=== PATIENT | male | born 1995 | race African-American/Black ===

== ENCOUNTER 2018-11-23 21:43 | Inpatient (IN) ==
[2018-11-23] MEDS ORDERED: ONDANSETRON INJ 2 MG/ML 2 ML VIAL IV STA (22:10)
[2018-11-23] MEDS ORDERED: FAMOTIDINE 20MG/5ML IV PUSH IV STA (22:11)
[2018-11-23] MEDS ORDERED: SODIUM CHLORIDE 0.9% 500 ML IV SCH (22:15)
[2018-11-23 22:34] LABS: Basophils # (auto) 0.02 K/uL (0-0.2); Basophils % (auto) 0.2 %; Eosinophils # (auto) 0.17 K/uL (0-0.5); Eosinophils % (auto) 2.1 %; Hematocrit (blood only) 46.7 % (42-52); Hemoglobin 16.8 g/dL (14.0-18.0); Immature Granulocytes # (auto) 0.01 K/uL (0.00-0.02); Immature Granulocytes % (auto) 0.1 %; Lymphocytes # (auto) 2.82 K/uL (1.2-3.4); Lymphocytes % (auto) 34.1 %; Mean Corpuscular Hemoglobin 31.3 pg (25-34); Mean Platelet Volume 11.1 fL (7.4-10.4); Monocytes # (auto) 0.75 K/uL (0.11-0.59); Monocytes % (auto) 9.1 %; Neutrophils % (auto) 54.4 %; Platelet Count 182 K/uL (130-400); RDW Coefficient of Variation 12.8 % (11.5-14.5); RDW Standard Deviation 40.6 fL (36.4-46.3); Red Blood Count 5.37 M/uL (4.7-6.1); White Blood Count 8.27 K/uL (4.8-10.8)
--- NOTE | 2018-11-23 22:46 | XRay Report ---
XR chest 1V portable CLINICAL HISTORY: 23 years-old Male presenting with cp, poss esoph fb. TECHNIQUE: Portable upright AP view of the chest was obtained. COMPARISON: None. FINDINGS: Cardiomediastinal silhouette normal. Lungs and pleural spaces clear. Osseous structures normal. Exter nal metallic devices project over the upper abdomen. IMPRESSION: 1. No acute cardiopulmonary disease. No radiopaque foreign body in the thorax. Electronically signed by: Joe Yan M.D. 11/23/2018 10:44 PM
[2018-11-23 22:53] LABS: Albumin Level 4.5 gm/dl (3.4-5.0); BUN Creatinine Ratio 14.9 (10-20); Calcium 9.5 mg/dl (8.5-10.1); Est GFR (African American) 118.4; Est GFR (Non-African American) 102.2
[2018-11-23 22:55] LABS: Bilirubin,Total 0.4 mg/dl (0.2-1); Globulin 4.4 gm/dl (2.5-4.0); Total Protein 8.9 gm/dl (6.4-8.2)
--- NOTE | 2018-11-24 00:36 | Emergency Department Note ---
Entered by Elisa Schwartz acting as a scribe for Fco Bejarano MD History of Present Illness General Chief complaint: GI Assessment Stated complaint: ATE 10 PCS. OF GLASS, CUTS ON ARMS Time Seen by Provider: 11/23/18 22:00 Source: patient and other (nursing home) History of Present Illness Onset (ago): hour(s) (earlier today) Location: abdomen Pain Consistency: + constant Maximum Pain Intensity: 6 Quality: + other Associated symptoms: + cough and + other (cuts on right and left arms); no nausea/vomiting The patient is a 23 year old male who presents to the Emergency Room with complaints of constant abdominal pain following an episode in which he swallowed glass at the nursing home, per the nursing home's report.The nursing home states that he also cut himself on his arms from the glass. The patient states that has had a cough, but denies any nausea or vomiting. The patient states that he has a history of a heart murmur. The nursing home also states that the patient is part of the mental health facility, and is required to wear a taser belt at all times outside of the nursing home unless under anesthesia for surgery. Home Medications Home Medications Medication Instructions Recorded Confirmed Type clonidine HCl 0.2 mg PO BID 11/23/18 11/23/18 History imipramine HCl 50 mg PO BID 11/23/18 11/23/18 History Allergies Allergy/AdvReac Type Severity Reaction Status Date / Time No Known Allergies Allergy Unverified 11/23/18 23:11 Past Med/Surg History Medical History Heart murmur Laceration Abdominal pain Contact with glass as cause of injury with undetermined intent of harm Surgical History No pertinent past surgical history Family History Other No pertinent family history Social History Preferred Language: Yi Communication Ability: Unable Reference Library Assistant Required: No Current Living Situation: Other Current Living Situation Comment: [facility] Feels Safe at Home: Yes Smoking Status: Former smoker Review of Systems See HPI for pertinent positives & negatives. and A total of 10 systems reviewed and were otherwise negative Physical Exam Vital Signs Vital Signs - 24 hr 11/23/18 21:47 11/23/18 23:48 Temperature 37 C Temperature Source Oral Sepsis Recent Fever Within 48 Hours No Sepsis New/Unexplained Change in Mental Status No Sepsis Action Taken by Nursing No Action Required Pulse Rate 105 H Pulse Rate [Right] 95 H Pulse Rhythm [Right] Regular Pulse Strength [Right] Normal Respiratory Rate 14 18 Respiratory Effort / Characteristics Non-Labored Spontaneous Respiratory Depth Normal Normal Blood Pressure 130/91 Blood Pressure [Left Arm] 127/86 Blood Pressure Mean 104 Blood Pressure Mean [Left Arm] 99 Blood Pressure Position [Left Arm] Sitting Pulse Oximetry 93 98 Oxygen Delivery Method Room Air GENERAL: Patient is in no acute distress. HEENT: No acute trauma, normocephalic atraumatic, mucous membranes moist, no nasal congestion, no scleral icterus. NECK: No stridor, no adenopathy, no meningismus, trachea is midline. LUNGS: Clear to auscultation bilaterally, no wheeze, no rhonchi, breath sounds equal. HEART: 3/6 systolic murmur, mildly tachycardic, regular rhythm. ABDOMEN: Tenderness. Soft,bowel sounds positive, no hernias, no peritonitis. EXTREMITIES: Multiple superficial lacerations to upper extremities. The wounds are clean, no active bleeding. No cyanosis or edema, full range of motion of all the joints without pain or difficulty. NEUROLOGIC: Oriented x 3, no acute motor or sensory deficits, no focal weakness. SKIN: No rash, no jaundice, no diaphoresis. Psyc: Cooperative, admits to ingesting glass and self cutting in an attempt to harm himself. Course 220: Past medical records reviewed. The patient was evaluated in room B4. A complete history and physical exam was performed. 2350: I spoke with Dr. Jenkins GI who recommends no emergent endoscopy and says he just needs observation. 2353: Upon reevaluation, I discussed findings and results with the patient. He verbalized agreement of the treatment plan. 0002: I spoke with Dr. [facility] Hospitalist and she agrees to take the patient for further evaluation. Administered Medications Clonidine HCl (Catapres) 0.2 mg PO BID [facility]UC[facility] Stop: 12/24/18 03:59 Last Admin: 11/24/18 19:48 Dose: 0.2 mg Documented by: [id number] Admin: 11/24/18 09:48 Dose: Not Given Documented by: [id number] Admin: 11/24/18 04:59 Dose: 0.2 mg Documented by: [id number] Lactated Ringer's (Lr) 1,000 mls @ 75 mls/hr IV .[id number] [facility] Stop: 12/24/18 03:26 Last Admin: 11/24/18 19:47 Dose: 75 mls/hr Documented by: [id number] Infusion: 11/24/18 19:47 Dose: 125 mls/hr Documented by: [id number] Admin: 11/24/18 18:13 Dose: 125 mls/hr Documented by: [id number] Infusion: 11/24/18 18:13 Dose: 0 mls/hr Documented by: [id number] Infusion: 11/24/18 14:11 Dose: 125 mls/hr Documented by: [id number] Infusion: 11/24/18 11:58 Dose: 0 mls/hr Documented by: [id number] Admin: 11/24/18 04:58 Dose: 125 mls/hr Documented by: [id number] Imipramine HCl (Tofranil) 50 mg PO BID [facility] Stop: 12/24/18 21:00 Last Admin: 11/24/18 19:48 Dose: 50 mg Documented by: [id number] Admin: 11/24/18 09:48 Dose: Not Given Documented by: [id number] Admin: 11/24/18 04:59 Dose: 50 mg Documented by: [id number] Pantoprazole Sodium (Protonix) 40 mg PO DAILYBB [facility] Stop: 12/24/18 13:14 Last Admin: 11/24/18 14:24 Dose: 40 mg Documented by: [id number] Sucralfate (Carafate) 1 gm PO QID [facility] Stop: 12/24/18 08:59 Last Admin: 11/24/18 19:48 Dose: 1 gm Documented by: [id number] Admin: 11/24/18 18:13 Dose: Not Given Documented by: [id number] Admin: 11/24/18 14:24 Dose: 1 gm Documented by: [id number] Admin: 11/24/18 09:47 Dose: Not Given Documented by: [id number] Discontinued Medications Famotidine (Pepcid 20mg Iv Push) 20 mg IV ONE STA Stop: 11/23/18 22:12 Last Admin: 11/23/18 22:24 Dose: 20 mg Documented by: [id number] Fentanyl Citrate (Fentanyl Citrate) Confirm Administered Dose 100 mcg .ROUTE .STK-MED ONE Stop: 11/24/18 12:01 Last Admin: 11/24/18 13:55 Dose: Not Given Documented by: [id number] Sodium Chloride (Nss) 500 mls @ 999 mls/hr IV .Q31M [facility] Stop: 11/23/18 22:45 Last Infusion: 11/23/18 23:00 Dose: 0 mls/hr Documented by: [id number] Admin: 11/23/18 22:25 Dose: 999 mls/hr Documented by: [id number] Lidocaine HCl (Xylocaine 2%) Confirm Administered Dose 4 ml INFIL .STK-MED ONE Stop: 11/24/18 12:46 Last Admin: 11/24/18 13:56 Dose: Not Given Documented by: [id number] Midazolam HCl (Versed) Confirm Administered Dose 2 mg .ROUTE .STK-MED ONE Stop: 11/24/18 12:01 Last Admin: 11/24/18 13:56 Dose: Not Given Documented by: [id number] Ondansetron HCl (Zofran) 4 mg IV NOW [facility] Stop: 11/23/18 22:11 Last Admin: 11/23/18 22:25 Dose: 4 mg Documented by: [id number] Ondansetron HCl (Zofran) Confirm Administered Dose 4 mg .ROUTE .STK-MED ONE Stop: 11/24/18 12:46 Last Admin: 11/24/18 13:56 Dose: Not Given Documented by: [id number] Propofol (Diprivan) Confirm Administered Dose 200 mg IV .STK-MED ONE Stop: 11/24/18 12:46 Last Admin: 11/24/18 13:56 Dose: Not Given Documented by: [id number] Ranitidine HCl (Zantac) 150 mg PO BID [facility] Stop: 12/24/18 03:26 Last Admin: 11/24/18 09:48 Dose: Not Given Documented by: [id number] Admin: 11/24/18 04:59 Dose: 150 mg Documented by: [id number] Medical Decision Making Differential Diagnosis differential diagnosis: foreign body to the upper abdomen, suicidal ideation, esophageal rupture, gastric rupture, gastric or esophageal bleeding, bowel obstruction. Medical Records Attestation: I reviewed the patient's medical records. Home Medications Current Medication List: was personally reviewed by me Laboratory Data Attestation: I reviewed the patient's lab results. Result diagrams: 11/24/18 06:59 11/23/18 22:17 Lab Results 11/23/18 11/23/18 Range/Units 22:17 22:17 WBC 8.27 (4.8-10.8) K/uL RBC 5.37 (4.7-6.1) M/uL Hgb 16.8 (14.0-18.0) g/dL Hct 46.7 (42-52) % MCV 87.0 (80-100) fL MCH 31.3 (25-34) pg MCHC 36.0 (32-36) g/dL RDW Std Deviation 40.6 (36.4-46.3) fL RDW Coeff of Raven 12.8 (11.5-14.5) % Plt Count 182 (130-400) K/uL MPV 11.1 H (7.4-10.4) fL Immature Gran % (Auto) 0.1 % Neut % (Auto) 54.4 % Lymph % (Auto) 34.1 % Gosper % (Auto) 9.1 % Eos % (Auto) 2.1 % Baso % (Auto) 0.2 % Immature Gran # (Auto) 0.01 (0.00-0.02) K/uL Neut # (Auto) 4.50 (1.4-6.5) K/uL Lymph # (Auto) 2.82 (1.2-3.4) K/uL Gosper # (Auto) 0.75 H (0.11-0.59) K/uL Eos # (Auto) 0.17 (0-0.5) K/uL Baso # (Auto) 0.02 (0-0.2) K/uL Sodium 141 (136-145) mmol/L Potassium 4.0 (3.5-5.1) mmol/L Chloride 103 (98-107) mmol/L Carbon Dioxide 30 (21-32) mmol/L Anion Gap 8.0 (3-11) BUN 15 (7-18) mg/dl Creatinine 1.04 (0.6-1.4) mg/dl Est Cr Clr Drug Dosing 127.0 ml/min Est GFR ( Amer) 118.4 Est GFR (Non-Af Amer) 102.2 BUN/Creatinine Ratio 14.9 (10-20) Glucose 81 (70-99) mg/dl Calcium 9.5 (8.5-10.1) mg/dl Total Bilirubin 0.4 (0.2-1) mg/dl AST 16 (15-37) U/L ALT 15 (12-78) U/L Alkaline Phosphatase 66 (45-117) U/L Total Protein 8.9 H (6.4-8.2) gm/dl Albumin 4.5 (3.4-5.0) gm/dl Globulin 4.4 H (2.5-4.0) gm/dl Albumin/Globulin Ratio 1.0 (0.9-2) Lipase 54 L (73-393) U/L Imaging Data Radiologist's Impression: Read and interpreted by the radiologist XR chest 1V portable CLINICAL HISTORY: 23 years-old Male presenting with cp, poss esoph fb. TECHNIQUE: Portable upright AP view of the chest was obtained. COMPARISON: None. FINDINGS: Cardiomediastinal silhouette normal. Lungs and pleural spaces clear. Osseous structures normal. External metallic devices project over the upper abdomen. IMPRESSION: 1. No acute cardiopulmonary disease. No radiopaque foreign body in the thorax. Electronically signed by: Joe Yan M.D. 11/23/2018 10:[address] ABDOMEN & PELVIS Without Contrast: No definite foreign body. No evidence for bowel perforation. Radiologist: Lasha Kirby MD Study ready at 23:03 and initial results transmitted at 23:21 Blood Pressure Blood Pressure Findings: Elevated blood pressure Blood Pressure Disposition: further management by hospitalist [facility] Narrative There is no leukocytosis or concerning anemia. No significant electrolyte abnormality or kidney failure. No liver enzyme elevation. No evidence for pancreatitis by our testing. Chest film did not show mediastinal widening, pneumonia or free air. No radiopaque foreign debris seen. Abdominal and pelvis CT did not show any evidence for perforation or radiopaque foreign debris. On exam, the patient was not toxic, he was not febrile. He did not have perito nitis. He had multiple superficial cuts to his arms that would not require suturing. The cuts were cleansed and dressed. The patient received IV saline, he was maintained n.p.o. He received IV Pepcid and IV Zofran. The patient has done well during his ED stay. I did consult GI. After a fairly lengthy discussion, it was decided the patient would be best hospitalized for observation. He may require an endoscopy if things are worsening. No emergent endoscopy was felt warranted. I spoke to the patient and the guards, I talked with case management. The on- call hospitalist was consulted. In short, as to whether or not the patient truly ingested glass is unclear. He says he did although we find no evidence for this ingestion by CT. His arm lacerations will heal without suturing. Impression & Plan Suicidal ideation, Deliberate self-cutting, Foreign body ingestion Discharge Plan Visit Data *Final* Discharge Date/Time: 11/24/18 02:56 Chief Complaint: GI Assessment Stated Complaint: ATE 10 PCS. OF GLASS, CUTS ON ARMS ED Provider: Fco Bejarano Discharge Problem: Suicidal ideation, Deliberate self-cutting, Foreign body ingestion Patient Disposition: Admitted As Inpatient Discharge Instructions Interventions: ED Discharge Assessment Last Done: 11/24/18 02:56 Discharge Problem: Foreign body ingestion Qualifiers: Encounter type: initial encounter Qualified Code(s): T18.9XXA - Foreign body of alimentary tract, part unspecified, initial encounter The tooibe's documentation has been prepared under my direction and personally reviewed by me in its entirety. I confirm that the note above accurately reflects all work, treatment, procedures, and medical decision making performed by me.
--- NOTE | 2018-11-24 01:07 | History & Physical Report ---
Date of Service November 24, 2018 Assessment & Plan (1) Contact with glass as cause of injury with undetermined intent of harm: 23-year-old male with history of bipolar disorder, depression, ADHD, Asperger's presents status post witnessed ingestion of small glass pieces at 6 PM today with abdominal pain. Patient is a new prisoner at [facility]. He reports feeling bored and wanting to commit suicide as he has a very long imprisonment period so he broke the light bulb and use the glass to cut his arms and also ingested "sugar size "pieces. Glass ingestion No concern for acute bleed or perforation at this time CT abdomen/pelvis: No definite foreign body on bowel perforation Chest x-ray: Normal no radiopaque foreign body noted Hemoglobin normal Received famotidine, Zofran and normal saline in the ED Started on Zantac and Carafate Serial abdominal checks for worsening tenderness or distention Monitor CBC GI consulted -ED physician spoke to Dr. Giles who recommended observation overnight and will see patient in the morning Heart murmur Reports history of heart murmur for a long time Echo ordered to further investigate Superficial laceration Cleaned and dressing applied in the ED, no sutures needed Wound care daily History of Asperger's, ADHD, depression, bipolar Continue home medications of clonidine and imipramine FEN/GI: N.p.o. for possible procedure Code: Full DVT prophylaxis: SCDs chemical contraindicated Disposition: MedSurg (2) Abdominal pain: (3) Laceration: (4) Heart murmur: History of Present Illness Chief Complaint: Glass ingestion Primary Care Provider: [facility] 23-year-old male with history of bipolar disorder, depression, ADHD, Asperger's presents status post witnessed ingestion of small glass pieces at 6 PM today with abdominal pain. Patient is a new prisoner at [facility]. He reports feeling bored and wanting to commit suicide as he has a very long imprisonment period so he broke the light bulb and use the glass to cut his arms and also ingested "sugar size "pieces. Denies any hemoptysis, vomiting. No bowel movement yet. Abdominal pain is described as sharp and crampy in nature and intermittent. Also reports headache and lightheadedness, nausea and dysuria. Denies any fever, chills, chest pain, shortness of breath, vomiting, diarrhea, constipation, melena, hematochezia, hematuria. Previous similar cutting and suicidal attempts. Allergies Allergy/AdvReac Type Severity Reaction Status Date / Time No Known Allergies Allergy Unverified 11/23/18 23:11 Home Medications Home Medications Medication Instructions Recorded Confirmed Type clonidine HCl 0.2 mg PO BID 11/23/18 11/23/18 History imipramine HCl 50 mg PO BID 11/23/18 11/23/18 History Past Med/Surg History Medical History Heart murmur Laceration Abdominal pain Contact with glass as cause of injury with undetermined intent of harm Surgical History No pertinent past surgical history Family History Other No pertinent family history Social History Feels Safe at Home: Yes Smoking Status: Former smoker Review of Systems Review of Systems: As per HPI Physical Exam Physical Exam: General: In NAD HEENT: somewhat dry mucous membranes Neuro: A&O x 4, CN 2-12 intact, strength 5/5 bilateral upper and lower extremities, sensation intact bilateral upper and lower extremities Pulm: CTAB equal breath sounds bilaterally CV: RRR, 4/6 systolic ejection murmur lower to the L of sternum but heard throughout pericordium, cap refill 3 secs Abdomen:+BS, mild TTP of epigastric region and RLQ, non-distended, exam limited due to patient wearing shock felt that cannot be removed Skin: superficial cuts to arms - dressing C/D/I LE: no LE edema, no calf TTP Results & Data Vital Signs (Past 12 Hours) Vital Signs Temp Pulse Pulse Resp BP BP Pulse Ox 11/23/18 23:48 95 H 18 127/86 98 11/23/18 21:47 37 C 105 H 14 130/91 93 Laboratory Results Abnormal lab results 11/23/18 11/23/18 Range/Units 22:17 22:17 MPV 11.1 H (7.4-10.4) fL Bacon # (Auto) 0.75 H (0.11-0.59) K/uL Total Protein 8.9 H (6.4-8.2) gm/dl Globulin 4.4 H (2.5-4.0) gm/dl Lipase 54 L (73-393) U/L Diagnostic Findings XR chest 1V portable CLINICAL HISTORY: 23 years-old Male presenting with cp, poss esoph fb. TECHNIQUE: Portable upright AP view of the chest was obtained. COMPARISON: None. FINDINGS: Cardiomediastinal silhouette normal. Lungs and pleural spaces clear. Osseous structures normal. External metallic devices project over the upper abdomen. IMPRESSION: 1. No acute cardiopulmonary disease. No radiopaque foreign body in the thorax. Code Status & VTE Plan Code Status Full VTE Prophylaxis Plan VTE Prophylaxis will be ordered: Yes Supervising Physician Co-Signing Physician Notes Patient seen and examined, chart reviewed, case discussed with Dr. Polanco and I agree with her assessment and plan as documented above. Briefly patient is a 23-year-old -[place] male, inmate at [facility], with extensive psychiatric history to include bipolar disorder, depression, Asperger's, ADHD presenting after ingestion of glass. Patient cut his arm with glass then proceeded to swallow "sugar sized pieces". No complaints at present. No abdominal pain On physical exam he is afebrile, hemodynamically stable, no acute distress Abdomen is soft, nontender, nondistended. Exam limited secondary to taser belt in place Remainder of exam unremarkable Labs and images reviewed Assessment/plan: 23-year-old male presents after ingestion of glass. -Abdomen benign presently. No evidence of bleed or perforation -Continue to monitor -Carafate and Zantac -Wound care for superficial cuts -Remainder of plan as above PG Care Time/CCT Total # of Minutes Spent Total Time Spent with Patient: Total time spent is greater than 50% in coordination of care (as documented) at patient's floor/unit and/or counseling patient: Resident Activity Tracking Resident Involvement: Resident Care Provided Care Provided: Adult Hospital Medicine
[2018-11-24] MEDS ORDERED: ONDANSETRON INJ 2 MG/ML 2 ML VIAL IV PRN (03:27)
[2018-11-24] MEDS ORDERED: ACETAMINOPHEN 325 MG TAB PO PRN (03:27)
[2018-11-24] MEDS: LACTATED RINGER'S 1,000 ML IV SCH ×3 (04:58→19:47)
[2018-11-24] MEDS: cloNIDine HCl 0.1 MG TAB PO SCH ×3 (04:59→19:48)
[2018-11-24] MEDS: IMIPRAMINE HCL 50 MG TAB PO SCH ×3 (04:59→19:48)
[2018-11-24 07:16] LABS: Basophils # (auto) 0.02 K/uL (0-0.2); Basophils % (auto) 0.2 %; Eosinophils # (auto) 0.16 K/uL (0-0.5); Eosinophils % (auto) 1.7 %; Hematocrit (blood only) 42.6 % (42-52); Hemoglobin 15.2 g/dL (14.0-18.0); Immature Granulocytes # (auto) 0.01 K/uL (0.00-0.02); Immature Granulocytes % (auto) 0.1 %; Lymphocytes # (auto) 2.24 K/uL (1.2-3.4); Lymphocytes % (auto) 23.4 %; Mean Corpuscular Hemoglobin 31.3 pg (25-34); Mean Corpuscular Hgb Conc 35.7 g/dL (32-36); Mean Corpuscular Volume 87.7 fL (80-100); Mean Platelet Volume 10.9 fL (7.4-10.4); Monocytes % (auto) 11.5 %; Neutrophils # (auto) 6.06 K/uL (1.4-6.5); Neutrophils % (auto) 63.1 %; Platelet Count 167 K/uL (130-400); RDW Coefficient of Variation 12.7 % (11.5-14.5); RDW Standard Deviation 40.8 fL (36.4-46.3); Red Blood Count 4.86 M/uL (4.7-6.1); White Blood Count 9.59 K/uL (4.8-10.8)
--- NOTE | 2018-11-24 07:33 | CT Scan Report ---
ABDOMEN AND PELVIS CT WITHOUT CONTRAST CT DOSE: 352.45 mGy.cm HISTORY: Foreign body ingestion. ingested glass, poss fb or rupture TECHNIQUE: Multiaxial CT images of the abdomen and pelvis were performed without contrast. A dose lo wering technique was utilized adhering to the principles of ALARA. COMPARISON STUDY: Chest radiograph of same day FINDINGS: Streak artifact from the battery pack device is within the bilateral flank distributions. Lung bases are generally clear. No pneumatosis or pneumoperitoneum. Imaged inferior cardiac chambers are unremar kable. Limited evaluation of the solid abdominal organs without the use of IV contrast. Within the li mitations of the exam, the liver, spleen, gallbladder, pancreas and adrenal glands are unremarkable. Kidneys are within normal limits. Mild nonspecific wall thickening of the urinary bladder. No renal o r ureteral calculi or obstructive uropathy. Aorta and IVC are within normal limits. There is no bowel obstruction or bowel wall thickening identified. Moderate fecal retention. No opaque foreign body id entified. Appendix is not definitively visualized. There is no ascites or mesenteric inflammation. So ft tissues are within normal limits. Bones appear to be intact. No acute fracture identified. IMPRESSION: 1. Limited exam as above. 2. No bowel obstruction, bowel wall thickening, pneumatosis or pneumoperitoneum. 3. No opaque foreign body identified. 4. Moderate fecal retention. Electronically signed by: Alex Valdez M.D. 11/24/2018 7:31 AM
--- NOTE | 2018-11-24 09:10 | Gastrointestinal Consultation ---
Date of Consultation November 24, 2018 Assessment & Plan (1) Contact with glass as cause of injury with undetermined intent of harm: 23 year old male admitted for observation from group home after ingestion of glass pieces of lightbulb - he does not ongoing upper abdominal pain, but no nausea/vomiting. Has not moved his bowels since admission. - NPO - EGD today, timing to be determined - Consider general surgery consultation Thank you for allowing us to participate in the care of this patient. Please call with any acute changes, questions or concerns. Please see addendum below with additional recommendation from my supervising physician. Present on Admission?: Yes Supervising Physician Co-Signing Physician Notes I saw and evaluated the patient. We are consulted for question of swallowed glass. Patient reports that he broke up a light bulb yesterday and swallowed several small shards of glass. He is nonspecific with the amount in size of pieces but believes that the pieces were small. Physical exam No obvious distress Abdomen soft nontender Impression: Patient with a question of swallowed glass yesterday at present. We were certainly happy to provide endoscopic evaluation to look for shards within the upper digestive tract. If the exam is negative I would then suggest a surgical consultation to determine what course of therapy should be considered, likely observation perhaps at the [facility] with daily KUBs. We have discussed the risks and benefits of upper endoscopy to include bleeding, infection, perforation and need for follow-up exams. History of Present Illness Reason for Consultation: foriegn body ingestion Requesting Physician: Amrit Attending Physician: Vance Marcus History of Present Illness 23 year old male w/ history of bipolar disorder, depression, ADHD, Asperger's inmate at [facility] who presented through the ED after ingestion of glass pieces of light bulb - GI asked to evaluate. Pt was seen and evaluated, cahrt reviewed. Guards at bedside. Inital chart review indicated swallowed pieces were witnessed but guards at bedside unsure if this was witnessed or not. Pt notes he broke lightbuld, swallows piece of glass although he would not articulate size or amount to me. He also used glass pieces to cut his arms. Since ingestion has had upper abdominal pain. No nausea, vomiting. Denies any coffee ground emesis, hematemesis. Has not moved bowels. Denies any black/bloody stools. Denies any prior abd surgeries Has never had EGD/Colon before Chest XR: No acute cardiopulmonary disease. No radiopaque foreign body in the thorax. CT: Limited exam as above. No bowel obstruction, bowel wall thickening, pneumatosis or pneumoperitoneum. No opaque foreign body identified. Moderate fecal retention. Allergies Allergy/AdvReac Type Severity Reaction Status Date / Time No Known Allergies Allergy Unverified 11/23/18 23:11 Home Medications Home Medications Medication Instructions Recorded Confirmed Type clonidine HCl 0.2 mg PO BID 11/23/18 11/23/18 History imipramine HCl 50 mg PO BID 11/23/18 11/23/18 History Patient History Medical History Heart murmur Laceration Abdominal pain Contact with glass as cause of injury with undetermined intent of harm Surgical History No pertinent past surgical history Family History Other No pertinent family history Social History Preferred Language: Czech Communication Ability: Unable Guest Services Manager Required: No Current Living Situation: Other Current Living Situation Comment: [facility] Feels Safe at Home: Yes Smoking Status: Former smoker Review of Systems Constitutional: no fever, no chills and no fatigue Respiratory: no cough and no dyspnea Cardiovascular: no chest pain and no dyspnea on exertion Gastrointestinal: + abdominal pain; no coffee ground emesis, no hematemesis, no blood in stools and no melena Physical Exam Constitutional: WD/WN, vitals as above Neck: trachea midline Respiratory: normal respiratory effort, lungs clear to auscultation Cardiovascular: Rate/Rhythm: regular rate and regular rhythm Heart Sounds: + murmur Gastrointestinal (Abdomen): Inspection/Auscultation: abdomen normal to inspection and normal bowel sounds Percussion/Palpation: + abdomen tender (generalized) and abdomen soft; no guarding and abdomen not rigid Skin: no rashes, warm and dry Results & Data Vital Signs (Past 12 Hours) Vital Signs Temp Pulse Pulse Resp BP BP Pulse Ox 11/24/18 07:14 36.5 C 99 H 16 136/81 96 11/24/18 02:56 88 18 120/83 99 11/24/18 02:16 86 18 120/83 100 11/24/18 01:00 93 H 18 134/85 99 11/23/18 23:48 95 H 18 127/86 98 11/23/18 21:47 37 C 105 H 14 130/91 93 Laboratory Results 11/24/18 11/24/18 11/23/18 Range/Units 06:59 05:30 22:17 WBC 9.59 (4.8-10.8) K/uL RBC 4.86 (4.7-6.1) M/uL Hgb 15.2 (14.0-18.0) g/dL Hct 42.6 (42-52) % MCV 87.7 (80-100) fL MCH 31.3 (25-34) pg MCHC 35.7 (32-36) g/dL RDW Std Deviation 40.8 (36.4-46.3) fL RDW Coeff of Raven 12.7 (11.5-14.5) % Plt Count 167 (130-400) K/uL MPV 10.9 H (7.4-10.4) fL Immature Gran % (Auto) 0.1 % Neut % (Auto) 63.1 % Lymph % (Auto) 23.4 % Cecil % (Auto) 11.5 % Eos % (Auto) 1.7 % Baso % (Auto) 0.2 % Immature Gran # (Auto) 0.01 (0.00-0.02) K/uL Neut # (Auto) 6.06 (1.4-6.5) K/uL Lymph # (Auto) 2.24 (1.2-3.4) K/uL Cecil # (Auto) 1.10 H (0.11-0.59) K/uL Eos # (Auto) 0.16 (0-0.5) K/uL Baso # (Auto) 0.02 (0-0.2) K/uL Sodium 141 (136-145) mmol/L Potassium 4.0 (3.5-5.1) mmol/L Chloride 103 (98-107) mmol/L Carbon Dioxide 30 (21-32) mmol/L Anion Gap 8.0 (3-11) BUN 15 (7-18) mg/dl Creatinine 1.04 (0.6-1.4) mg/dl Est Cr Clr Drug Dosing 127.0 ml/min Est GFR ( Amer) 118.4 Est GFR (Non-Af Amer) 102.2 BUN/Creatinine Ratio 14.9 (10-20) Glucose 81 (70-99) mg/dl Calcium 9.5 (8.5-10.1) mg/dl Total Bilirubin 0.4 (0.2-1) mg/dl AST 16 (15-37) U/L ALT 15 (12-78) U/L Alkaline Phosphatase 66 (45-117) U/L Total Protein 8.9 H (6.4-8.2) gm/dl Albumin 4.5 (3.4-5.0) gm/dl Globulin 4.4 H (2.5-4.0) gm/dl Albumin/Globulin Ratio 1.0 (0.9-2) Lipase 54 L (73-393) U/L Nasal Screen MRSA (PCR) Positive A (Negative) 11/23/18 Range/Units 22:17 WBC 8.27 (4.8-10.8) K/uL RBC 5.37 (4.7-6.1) M/uL Hgb 16.8 (14.0-18.0) g/dL Hct 46.7 (42-52) % MCV 87.0 (80-100) fL MCH 31.3 (25-34) pg MCHC 36.0 (32-36) g/dL RDW Std Deviation 40.6 (36.4-46.3) fL RDW Coeff of Raven 12.8 (11.5-14.5) % Plt Count 182 (130-400) K/uL MPV 11.1 H (7.4-10.4) fL Immature Gran % (Auto) 0.1 % Neut % (Auto) 54.4 % Lymph % (Auto) 34.1 % Cecil % (Auto) 9.1 % Eos % (Auto) 2.1 % Baso % (Auto) 0.2 % Immature Gran # (Auto) 0.01 (0.00-0.02) K/uL Neut # (Auto) 4.50 (1.4-6.5) K/uL Lymph # (Auto) 2.82 (1.2-3.4) K/uL Cecil # (Auto) 0.75 H (0.11-0.59) K/uL Eos # (Auto) 0.17 (0-0.5) K/uL Baso # (Auto) 0.02 (0-0.2) K/uL Sodium (136-145) mmol/L Potassium (3.5-5.1) mmol/L Chloride (98-107) mmol/L Carbon Dioxide (21-32) mmol/L Anion Gap (3-11) BUN (7-18) mg/dl Creatinine (0.6-1.4) mg/dl Est Cr Clr Drug Dosing ml/min Est GFR ( Amer) Est GFR (Non-Af Amer) BUN/Creatinine Ratio (10-20) Glucose (70-99) mg/dl Calcium (8.5-10.1) mg/dl Total Bilirubin (0.2-1) mg/dl AST (15-37) U/L ALT (12-78) U/L Alkaline Phosphatase (45-117) U/L Total Protein (6.4-8.2) gm/dl Albumin (3.4-5.0) gm/dl Globulin (2.5-4.0) gm/dl Albumin/Globulin Ratio (0.9-2) Lipase (73-393) U/L Nasal Screen MRSA (PCR) (Negative)
[2018-11-24] MEDS: SUCRALFATE 1 GM/10 ML UDC PO SCH ×4 (09:47→19:48)
[2018-11-24] MEDS ORDERED: fentaNYL citrate 100 MCG/2 ML VIAL ONE (12:00)
[2018-11-24] MEDS ORDERED: MIDAZOLAM HCL 1 MG/ML 2ML VIAL ONE (12:00)
--- NOTE | 2018-11-24 12:03 | Anesthesiology Consultation ---
Date of Service November 24, 2018 Assessment & Plan (1) Encounter for pre-operative examination: Chart Review Chart Review: Acceptable Risk for Surgery and Patient NOT seen in Pre Admission Testing Consults Requested none History Surgery Operation Date: 11/24/18 08:30 Proposed Procedures p Esophagogastroduodenoscopy Dr Tristen Ramon Height/Weight Height: 6 ft 1 in Weight: 79.9 kg Allergies Allergy/AdvReac Type Severity Reaction Status Date / Time No Known Allergies Allergy Unverified 11/23/18 23:11 Medications Home Medications Medication Instructions Recorded Confirmed Last Taken clonidine HCl 0.2 mg PO BID 11/23/18 11/23/18 11/23/18 imipramine HCl 50 mg PO BID 11/23/18 11/23/18 11/23/18 Active Medications Generic Name Dose Route Start Last Admin Trade Name Freq PRN Reason Stop Dose Admin Clonidine HCl 0.2 mg 11/24/18 04:00 11/24/18 09:48 Catapres PO 12/24/18 03:59 Not Given BID LUCY Lactated Ringer's 1,000 mls @ 125 mls/hr 11/24/18 03:27 11/24/18 11:58 Lr IV 12/24/18 03:26 0 mls/hr .Q8H LUCY Infusion Imipramine HCl 50 mg 11/24/18 03:27 11/24/18 09:48 Tofranil PO 12/24/18 21:00 Not Given BID LUCY Ranitidine HCl 150 mg 11/24/18 03:27 11/24/18 09:48 Zantac PO 12/24/18 03:26 Not Given BID LUCY Sucralfate 1 gm 11/24/18 09:00 11/24/18 09:47 Carafate PO 12/24/18 08:59 Not Given QID LUCY NPO Date Last Intake of Fluids: 11/24/18 Time Last Intake of Fluids: 08:00 Last Intake of Fluids Comment: sip with meds Date Last Intake of Solids: 11/23/18 Time Last Intake of Solids: 16:00 Past Medical History Medical History Heart murmur Laceration Abdominal pain Contact with glass as cause of injury with undetermined intent of harm Past Family History Family History Other No pertinent family history Past Surgical History Surgical History No pertinent past surgical history Social History Smoking Status: Former smoker Physical Exam Vital Signs Last Vital Signs Temp 36.6 C 11/24/18 11:56 Pulse 74 11/24/18 11:56 Resp 16 11/24/18 11:56 BP 131/85 11/24/18 11:56 Pulse Ox 100 11/24/18 11:56 Testing Laboratory Results 11/24/18 06:59 11/23/18 22:17
[2018-11-24] MEDS ORDERED: PROPOFOL IV EMULSION 10 MG/ML 20 ML VIAL IV ONE (12:45)
[2018-11-24] MEDS ORDERED: ONDANSETRON INJ 2 MG/ML 2 ML VIAL ONE (12:45)
[2018-11-24] MEDS ORDERED: LIDOCAINE HCL 2% 2 ML VIAL/AMP(20MG/ML) INFIL ONE (12:45)
--- NOTE | 2018-11-24 12:51 | GI REPORT ---
Patient Name: Jr Narayanan Procedure Date: 11/24/2018 12:16 PM Date of : 1995 Admit Type: Inpatient Age: 23 Gender: Male Attending MD: Tal Ramon DO Procedure: Upper GI endoscopy Providers: Tal Ramon DO Referring MD: Charly WALDEN Indications: Foreign body in the GI tract (possible swallowed glass) Medicines: Monitored Anesthesia Care Complications: No immediate complications. Estimated blood loss: Minimal. Estimated Blood Loss: Estimated blood loss was minimal. Procedure: Pre-Anesthesia Assessment: - Prior to the procedure, a History and Physical was performed, and patient medications, allergies and sensitivities were reviewed. The patient's tolerance of previous anesthesia was reviewed. - The risks and benefits of the procedure and the sedation options and risks were discussed with the patient. All questions were answered and informed consent was obtained. - Patient identification and proposed procedure were verified prior to the procedure by the physician, the nurse and the septic tank service technician. The procedure was verified in the procedure room. - Pre-procedure physical examination revealed no contraindications to sedation. - ASA Grade Assessment: II - A patient with mild systemic disease. - After reviewing the risks and benefits, the patient was deemed in satisfactory condition to undergo the procedure. - The anesthesia plan was to use monitored anesthesia care (MAC). - Immediately prior to administration of medications, the patient was re-assessed for adequacy to receive sedatives. - The heart rate, respiratory rate, oxygen saturations, blood pressure, adequacy of pulmonary ventilation, and response to care were monitored throughout the procedure. - The physical status of the patient was re-assessed after the procedure. After obtaining informed consent, the endoscope was passed under direct vision. Throughout the procedure, the patient's blood pressure, pulse, and oxygen saturations were monitored continuously. The scope was introduced through the mouth, and advanced to the third part of duodenum. The upper GI endoscopy was accomplished without difficulty. The patient tolerated the procedure well. Findings: The upper third of the esophagus and middle third of the esophagus were normal. LA Grade A (one or more mucosal breaks less than 5 mm, not extending between tops of 2 mucosal folds) esophagitis with no bleeding was found at the gastroesophageal junction. The entire examined stomach was normal. The examined duodenum was normal. Impression: - LA Grade A reflux esophagitis. - Normal stomach. - Normal examined duodenum. - No specimens collected. Recommendation: - [facility]. - Use Prilosec (omeprazole) 20 mg PO daily. - No foreign body seen - Consider a General surgery consultation - GI to sign off. Tal Ramon D.O. Tal Ramon, 11/24/2018 12:50:42 PM This report has been signed electronically. Note Initiated On: 11/24/2018 12:16 PM Number of Addenda: 0 I attest to the content of the Intraoperative Record and orders documented therein, exceptions below {[id number]}
--- NOTE | 2018-11-24 12:59 | Anesthesiology Progress Note ---
Date of Service November 24, 2018 Anesthesia Post Procedure Vital Signs Vital Signs: Temp Pulse Pulse Resp BP BP Pulse Ox 11/24/18 12:47 65 16 113/60 100 11/24/18 11:56 36.6 C 74 16 131/85 100 11/24/18 07:14 36.5 C 99 H 16 136/81 96 11/24/18 02:56 88 18 120/83 99 11/24/18 02:16 86 18 120/83 100 11/24/18 01:00 93 H 18 134/85 99 11/23/18 23:48 95 H 18 127/86 98 11/23/18 21:47 37 C 105 H 14 130/91 93 Pain Intensity Bilateral Abdomen: Pain Intensity: 0 Transfer of Care Handoff Completed per policy Notes Mental Status: alert / awake / arousable Patient Amnestic to Procedure: Yes Nausea / Vomiting: adequately controlled Pain: adequately controlled Airway Patency, RR, SpO2: stable & adequate BP & HR: stable & adequate Hydration State: stable & adequate Anesthetic Complications: no major complications apparent and Pt Satisfied with anesthetic care
[2018-11-24] MEDS: PANTOprazole 40 MG TAB PO SCH (14:24)
--- NOTE | 2018-11-24 20:20 | Hospitalist Progress Note ---
Date of Service November 24, 2018 Assessment & Plan (1) Foreign body ingestion: patient recently transferred to [facility] from another shelter. upon arrival felt depressed. attempted self-harm/suicide by way of ingesting pieces of glass from a shattered light bulb. he has attempted suicide in the past several times. s/p EGD today without signs of injury or retained foreign body. spoke with GI who advised consultation with general surgery. spoke with on-call general surgery - they recommended at least another 24 hours of observation to observe for any signs/symptoms of bowel perforation. clear liquid diet also recommended. (2) Contact with glass as cause of injury with undetermined intent of harm: s/p suicide attempt see discussion above in "foreign body ingestion" (3) Suicidal ideation: patient denies being suicidal at this time. consider formal psych consult. he will be followed by psychiatry at the shelter. he is only on clonidine and imipramine -- uncertain, given his bipolar, why he is not on other mood stabilizing agents (antipsychotic, depakote, etc). (4) Bipolar disorder: as above (5) VSD (ventricular septal defect): exam and echo c/w such fortunately RV size/function is normal follow for now (6) Esophagitis: PPI lower IV fluid rate observe until tomorrow afternoon Subjective saw patient post-EGD he was upset that we were restricting diet to clears - asked for cookies, regular food, etc reports known h/o "7 holes in my heart" reports multiple suicide attempts in the past denies feeling suicidal at this time, however denies abd pain, nausea, emesis Review of Systems Respiratory: no dyspnea Cardiovascular: no chest pain Gastrointestinal: no abdominal pain and no vomiting Physical Exam Constitutional: well developed, well nourished and + well hydrated; no acute distress and no altered mental status ENMT: external ear and nose normal, oropharynx normal Respiratory: normal respiratory effort, lungs clear to auscultation Cardiovascular: Rate/Rhythm: regular rate and regular rhythm Heart Sounds: normal S1, normal S2 and + murmur (2-3/6 LLSB - early to mid systolic, harsh) Vessels: posterior tibial pulses present and dorsalis pedis pulses present; no JVD Extremities: no edema Gastrointestinal (Abdomen): normal bowel sounds, soft, nontender, no hepatosplenomegaly Psychiatric: Orientation: alert and oriented x 3 Results & Data Vital Signs (Past 12 Hours) Vital Signs Temp Pulse Resp BP BP Pulse Ox 11/24/18 14:59 36.3 C L 76 16 118/78 98 11/24/18 13:53 36.4 C L 68 18 120/82 100 11/24/18 13:17 70 16 111/74 100 11/24/18 13:02 70 16 121/70 97 11/24/18 12:47 65 16 113/60 100 11/24/18 11:56 36.6 C 74 16 131/85 100 Laboratory Results Laboratory Results - last 24 hr 11/23/18 11/23/18 11/24/18 22:17 22:17 05:30 WBC 8.27 RBC 5.37 Hgb 16.8 Hct 46.7 MCV 87.0 MCH 31.3 MCHC 36.0 RDW Std Deviation 40.6 RDW Coeff of Raven 12.8 Plt Count 182 MPV 11.1 H Immature Gran % (Auto) 0.1 Neut % (Auto) 54.4 Lymph % (Auto) 34.1 Roane % (Auto) 9.1 Eos % (Auto) 2.1 Baso % (Auto) 0.2 Immature Gran # (Auto) 0.01 Neut # (Auto) 4.50 Lymph # (Auto) 2.82 Roane # (Auto) 0.75 H Eos # (Auto) 0.17 Baso # (Auto) 0.02 Sodium 141 Potassium 4.0 Chloride 103 Carbon Dioxide 30 Anion Gap 8.0 BUN 15 Creatinine 1.04 Est Cr Clr Drug Dosing 127.0 Est GFR ( Amer) 118.4 Est GFR (Non-Af Amer) 102.2 BUN/Creatinine Ratio 14.9 Glucose 81 Calcium 9.5 Total Bilirubin 0.4 AST 16 ALT 15 Alkaline Phosphatase 66 Total Protein 8.9 H Albumin 4.5 Globulin 4.4 H Albumin/Globulin Ratio 1.0 Lipase 54 L Nasal Screen MRSA (PCR) Positive A 11/24/18 06:59 WBC 9.59 RBC 4.86 Hgb 15.2 Hct 42.6 MCV 87.7 MCH 31.3 MCHC 35.7 RDW Std Deviation 40.8 RDW Coeff of Raven 12.7 Plt Count 167 MPV 10.9 H Immature Gran % (Auto) 0.1 Neut % (Auto) 63.1 Lymph % (Auto) 23.4 Roane % (Auto) 11.5 Eos % (Auto) 1.7 Baso % (Auto) 0.2 Immature Gran # (Auto) 0.01 Neut # (Auto) 6.06 Lymph # (Auto) 2.24 Roane # (Auto) 1.10 H Eos # (Auto) 0.16 Baso # (Auto) 0.02 Sodium Potassium Chloride Carbon Dioxide Anion Gap BUN Creatinine Est Cr Clr Drug Dosing Est GFR ( Amer) Est GFR (Non-Af Amer) BUN/Creatinine Ratio Glucose Calcium Total Bilirubin AST ALT Alkaline Phosphatase Total Protein Albumin Globulin Albumin/Globulin Ratio Lipase Nasal Screen MRSA (PCR) PG Care Time/CCT Total # of Minutes Spent Total Time Spent with Patient: Total time spent is greater than 50% in coordination of care (as documented) at patient's floor/unit and/or counseling patient: (1) Foreign body ingestion Encounter type: initial encounter Qualified Code(s): T18.9XXA - Foreign body of alimentary tract, part unspecified, initial encounter (2) Bipolar disorder Active/Remission status: remission status unspecified Qualified Code(s): F31.9 - Bipolar disorder, unspecified
[2018-11-25] MEDS: LACTATED RINGER'S 1,000 ML IV SCH ×2 (00:59→18:31)
[2018-11-25] MEDS: PANTOprazole 40 MG TAB PO SCH (05:32)
[2018-11-25] MEDS: SUCRALFATE 1 GM/10 ML UDC PO SCH ×4 (09:53→20:12)
[2018-11-25] MEDS: IMIPRAMINE HCL 50 MG TAB PO SCH ×2 (09:54→20:12)
[2018-11-25] MEDS: cloNIDine HCl 0.1 MG TAB PO SCH ×2 (09:54→20:12)
--- NOTE | 2018-11-25 12:41 | XRay Report ---
XR abdomen 2V w PA chest CLINICAL HISTORY: 23 years-old Male presenting with ingestion of glass; abd pain; eval perforation. TECHNIQUE: PA view of the chest and supine and upright views of the abdomen were obtained. COMPARISON: CT of the abdomen and pelvis from 11/23/2018 and chest x-ray from 11/23/2018. FINDINGS: Cardiomediastinal silhouette normal. Lungs and pleural spaces clear. The stomach is distended with gas. Nonobstructive bowel gas pattern. Moderate stool burden throughout the colon. No gross pneumoperitoneum. No radiopaque foreign body. Allowing for bowel gas and stool, no calcifications to suggest nephrolithiasis. Osseous structures normal. IMPRESSION: 1. No acute cardiopulmonary disease. 2. Gaseous distended stomach. 3. No other evidence of obstruction. 4. Findings suggest constipation. 5. No radiopaque foreign body. Glass may or may not be appreciable by radiograph. Electronically signed by: Joe Yan M.D. 11/25/2018 12:40 PM
--- NOTE | 2018-11-25 16:13 | CT Scan Report ---
CT abd pelvis oral con only CLINICAL HISTORY: 23 years-old Male presenting with recent ingestion of glass, abd pain; eval perf. TECHNIQUE: Multidetector CT of the abdomen and pelvis was performed after the administration of oral contrast only. IV contrast: None. One or more dose lowering techniques were used consistent with the principles of ALARA (as low as reasonably achievable), including automatic exposure control, mA or kV adjustment to individual patient size, and/or use of iterative reconstruction. COMPARISON: 11/23/2018. CT DOSE (mGy.cm): The estimated cumulative dose is 333.63 mGy.cm. 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 Lung bases: Normal heart size. No pericardial or pleural effusion. No focal infiltrate or nodule at t he lung bases. Liver: Normal morphology. Normal density. Biliary: No gross biliary ductal dilatation allowing for noncontrast technique. Normal gallbladder. Pancreas: Normal noncontrast appearance. Spleen: Normal noncontrast appearance. Adrenal glands: Normal noncontrast appearance. Kidneys and ureters: Anteriorly oriented right renal pelvis. No nephrolithiasis. No hydronephrosis. U reters poorly visualized. Bladder: Normal noncontrast appearance. Pelvic organs: Normal noncontrast appearance. Bowel: Mild stool burden throughout normal caliber colon. Oral contrast has transited to the hepatic flexure. No bowel obstruction. The appendix is not visualized. No filling defect within the opacified bowel. No pneumatosis or gross bowel wall thickening. Peritoneal cavity: Trace free fluid in the pelvis, nonspecific. No free intraperitoneal gas. No extra luminal gas. Lymph nodes: No gross lymphadenopathy allowing for noncontrast technique. Vasculature: Normal noncontrast appearance. Abdominal wall: Normal. Musculoskeletal: Normal. IMPRESSION: 1. No filling defects within the opacified bowel to suggest a foreign body. Allowing for noncontrast technique, no evidence of a bowel perforation. 2. Nonvisualization the appendix. 3. No bowel obstruction. Electronically signed by: Joe Yan M.D. 11/25/2018 4:11 PM
--- NOTE | 2018-11-25 17:01 | Anesthesiology Progress Note ---
Date of Service November 25, 2018 Anesthesia Post Procedure Vital Signs Vital Signs: Temp Pulse Resp BP Pulse Ox 11/25/18 07:12 36.6 C 67 18 125/78 100 11/24/18 23:00 36.9 C 72 17 95/62 L 99 Pain Intensity Bilateral Abdomen: Pain Intensity: 0 Transfer of Care Handoff Completed per policy Notes Mental Status: alert / awake / arousable and participated in evaluation Nausea / Vomiting: adequately controlled Pain: adequately controlled Airway Patency, RR, SpO2: stable & adequate BP & HR: stable & adequate Hydration State: stable & adequate Anesthetic Complications: no major complications apparent and Pt Satisfied with anesthetic care
--- NOTE | 2018-11-25 18:47 | Hospitalist Progress Note ---
Date of Service November 25, 2018 Assessment & Plan (1) Foreign body ingestion: patient recently transferred to [facility] from another shelter. upon arrival felt depressed. attempted self-harm/suicide by way of ingesting pieces of glass from a shattered light bulb. he has attempted suicide in the past several times. s/p EGD without signs of injury or retained foreign body. following EGD I spoke with on-call general surgery - they recommended we observe for any signs/symptoms of bowel perforation. clear liquid diet also recommended. due to the abdominal pain today the x-rays were obtained - fortunately no signs of perforation/free air. severe constipation noted. following the x-rays and my exam I felt we should perform CT - this was obtained, and again no perforation or free air fortunately. no foreign bodies seen. again constipation noted. advance diet to full liquids now, then low-fiber in am. serial exams. (2) Contact with glass as cause of injury with undetermined intent of harm: s/p suicide attempt see discussion above in "foreign body ingestion" (3) Suicidal ideation: patient denies being suicidal at this time. consider formal psych consult. he will be followed by psychiatry at the shelter. he is only on clonidine and imipramine -- uncertain, given his bipolar, why he is not on other mood stabilizing agents (antipsychotic, depakote, etc). (4) Bipolar disorder: as above (5) VSD (ventricular septal defect): exam and echo c/w such fortunately RV size/function is normal follow for now (6) Esophagitis: PPI (7) Constipation: oral contrast for CT should help then, miralax at least daily constipation is severe radiographically imipramine can make this worse d/c fluids tonight hopefully d/c to shelter tomorrow Subjective drinking copious fluids and having multiple clear-liquid trays per staff staff then called this AM that he was having abd pain upon my arrival he complained of central and left-sided pain but no vomiting he endorses passing hard stool just prior to admission - chronic issue stat x-rays with severe constipation; no free air Review of Systems Constitutional: no fever Respiratory: no dyspnea Cardiovascular: no chest pain Gastrointestinal: + abdominal pain and + constipation; no nausea, no vomiting and no diarrhea/loose stools Physical Exam Constitutional: well developed, well nourished and + well hydrated; no acute distress and no altered mental status ENMT: external ear and nose normal, oropharynx normal Respiratory: normal respiratory effort, lungs clear to auscultation Cardiovascular: Rate/Rhythm: regular rate and regular rhythm Heart Sounds: normal S1, normal S2 and + murmur (2-3/6 LLSB - early to mid systolic, harsh) Vessels: posterior tibial pulses present and dorsalis pedis pulses present; no JVD Extremities: no edema Gastrointestinal (Abdomen): Inspection/Auscultation: normal bowel sounds; abdomen not distended Percussion/Palpation: + abdomen tender (central, LLQ) and abdomen soft; no guarding, abdomen not rigid and no hepatosplenomegaly Psychiatric: Orientation: alert and oriented x 3 Results & Data Vital Signs (Past 12 Hours) Vital Signs Temp Pulse Resp BP Pulse Ox 11/25/18 07:12 36.6 C 67 18 125/78 100 PG Care Time/CCT Total # of Minutes Spent Total Time Spent with Patient: Total time spent is greater than 50% in coordination of care (as documented) at patient's floor/unit and/or counseling patient: (1) Bipolar disorder Active/Remission status: remission status unspecified Qualified Code(s): F31.9 - Bipolar disorder, unspecified (2) Foreign body ingestion Encounter type: initial encounter Qualified Code(s): T18.9XXA - Foreign body of alimentary tract, part unspecified, initial encounter (3) Constipation Constipation type: other constipation type Qualified Code(s): K59.09 - Other constipation
[2018-11-25] MEDS: POLYETHYLENE (MIRALAX) 17 GM PACK PO SCH (20:11)
[2018-11-26] MEDS: PANTOprazole 40 MG TAB PO SCH (06:20)
[2018-11-26] MEDS: IMIPRAMINE HCL 50 MG TAB PO SCH ×2 (08:16→21:09)
[2018-11-26] MEDS: SUCRALFATE 1 GM/10 ML UDC PO SCH ×4 (08:17→21:08)
[2018-11-26] MEDS: cloNIDine HCl 0.1 MG TAB PO SCH ×2 (08:18→21:09)
[2018-11-26] MEDS: POLYETHYLENE (MIRALAX) 17 GM PACK PO SCH ×6 (09:30→21:07)
[2018-11-26] MEDS ORDERED: SOD PHOSPHATE/SOD BIPHOSPHATE ENEMA 132 ML BTL PR STA (17:12)
[2018-11-26] MEDS ORDERED: MAGNESIUM CITRATE 296 ML/BTL PO SCH (17:15)
[2018-11-26] MEDS ORDERED: POLYETHYLENE (MIRALAX) 17 GM PACK PO ONE (20:45)
--- NOTE | 2018-11-26 20:51 | Hospitalist Progress Note ---
Date of Service November 26, 2018 Assessment & Plan (1) Foreign body ingestion: patient recently transferred to [facility] from another long-term. upon arrival felt depressed. attempted self-harm/suicide by way of ingesting pieces of glass (according to him they were the size of sugar granules) from a shattered light bulb and also cut both arms and his abdominal wall with a plastic fork or spoon numerous times. he has attempted suicide in the past "a bunch of times." s/p EGD without signs of injury or retained foreign body. following EGD I spoke with on-call general surgery - they recommended we observe for any signs/symptoms of bowel perforation. clear liquid diet also recommended for 24 hours. yesterday evening obtained another CT of his abd/pelvis with oral contrast because of abdominal complaints and this was negative for perforation or bowel injury. CT showed severe constipation. Today advanced diet from full liquids to low fiber. Tolerating this well. (2) Contact with glass as cause of injury with undetermined intent of harm: s/p suicide attempt see discussion above in "foreign body ingestion" patient now continues to deny suicidal ideation I spoke with our psychiatric department -- upon discharge the long-term medical registrar should be notified of this man's suicide attempt this week (or at least self-mutilating behavior) and he will need psychiatric evaluation immediately upon return back to [facility] (3) Suicidal ideation: patient denies any further suicidality at this time. he will be followed by psychiatry at the long-term. he is only on clonidine and imipramine -- uncertain, given his bipolar, why he is not on other mood stabilizing agents (antipsychotic, depakote, etc). (4) Constipation: severe on x-rays and CT. imipramine likely contributing to this chronic problem. I recommended to him to speak with psych upon return to long-term to see if this med can be changed to something else. poor diet at long-term also contributing. s/p 5 doses of miralax this am with only small stool. gave fleets x 1 this afternoon with moderate stool per staff. will give 2 additional doses of miralax this evening. may need another enema tomorrow am. at discharge would recommend miralax BID +/- senna and improved diet. (5) Bipolar disorder: as above (6) VSD (ventricular septal defect): exam and echo c/w such fortunately RV size/function is normal follow for now (7) Esophagitis: PPI x 1 month as recommended by GI patient likely can d/c back to long-term on Tuesday AM if his constipation is improved Subjective saw patient mid-afternoon. he took 5 doses of miralax (as ordered) for severe constipation. he had a very small firm stool per staff. during the visit he complained of abdominal bloating/cramping. no nausea. no vomiting. passing flatus. eating 100% of meals and drinking fluids. Review of Systems Constitutional: no fever Respiratory: no dyspnea Cardiovascular: no chest pain Gastrointestinal: + abdominal pain, + bloating and + constipation; no nausea, no vomiting and no diarrhea/loose stools Physical Exam Constitutional: well developed, well nourished and + well hydrated; no acute distress and no altered mental status ENMT: external ear and nose normal, oropharynx normal Respiratory: normal respiratory effort, lungs clear to auscultation Cardiovascular: Rate/Rhythm: regular rate and regular rhythm Heart Sounds: normal S1, normal S2 and + murmur (2-3/6 LLSB - early to mid systolic, harsh) Vessels: posterior tibial pulses present and dorsalis pedis pulses present; no JVD Extremities: no edema Gastrointestinal (Abdomen): Inspection/Auscultation: + abdomen distended and normal bowel sounds (mildly hyperactive) Percussion/Palpation: abdomen nontender, no guarding, abdomen not rigid and no hepatosplenomegaly no peritoneal signs Psychiatric: Orientation: alert and oriented x 3 Results & Data Vital Signs (Past 12 Hours) Vital Signs Temp Pulse Resp BP Pulse Ox 11/26/18 14:58 36.9 C 83 18 112/69 100 PG Care Time/CCT Total # of Minutes Spent Total Time Spent with Patient: Total time spent is greater than 50% in coordination of care (as documented) at patient's floor/unit and/or counseling patient: (1) Foreign body ingestion Encounter type: initial encounter Qualified Code(s): T18.9XXA - Foreign body of alimentary tract, part unspecified, initial encounter (2) Bipolar disorder Active/Remission status: remission status unspecified Qualified Code(s): F31.9 - Bipolar disorder, unspecified (3) Constipation Constipation type: other constipation type Qualified Code(s): K59.09 - Other constipation
[2018-11-27] MEDS: PANTOprazole 40 MG TAB PO SCH (06:33)
[2018-11-27 07:02] LABS: Appearance Urine Clear (Clear); Bilirubin Urine Negative (Negative); Blood Urine Negative (Negative); Color Urine Yellow; Glucose Urine UA Negative (Negative); Ketones Urine Negative (Negative); Leukocyte Esterase Urine Negative (Negative); Nitrite Urine Negative (Negative); Protein Urine Negative (Negative); Specific Gravity Urine 1.031 (1.000-1.030); Urobilinogen Urine Negative (Negative)
[2018-11-27] MEDS: SUCRALFATE 1 GM/10 ML UDC PO SCH (08:01)
[2018-11-27] MEDS: cloNIDine HCl 0.1 MG TAB PO SCH (08:03)
[2018-11-27] MEDS: IMIPRAMINE HCL 50 MG TAB PO SCH (08:04)
[2018-11-27 08:08] LABS: Calcium 9.4 mg/dl (8.5-10.1); Creatinine Clr Calc Pharmacy 136.1 ml/min; Est GFR (African American) 128.8; Est GFR (Non-African American) 111.1; Potassium 3.8 mmol/L (3.5-5.1)
[2018-11-27 08:19] LABS: Thyroid Stimulating Hormone 1.67 uIu/ml (0.300-4.500)
--- NOTE | 2018-12-03 23:54 | Discharge Summary ---
Date of Service November 27, 2018 Admission HPI Per Admitting Provider 23-year-old male with history of bipolar disorder, depression, ADHD, Asperger's presents status post witnessed ingestion of small glass pieces at 6 PM today with abdominal pain. Patient is a new prisoner at [facility]. He reports feeling bored and wanting to commit suicide as he has a very long imprisonment period so he broke the light bulb and use the glass to cut his arms and also ingested "sugar size "pieces. Denies any hemoptysis, vomiting. No bowel movement yet. Abdominal pain is described as sharp and crampy in nature and intermittent. Also reports headache and lightheadedness, nausea and dysuria. Denies any fever, chills, chest pain, shortness of breath, vomiting, diarrhea, constipation, melena, hematochezia, hematuria. Previous similar cutting and suicidal attempts. Principal Diagnosis Ingestion of foreign substance, broken glass Discharge Exam Constitutional WD/WN, vitals as above Eyes PERRL, conjunctivae normal, anicteric sclerae ENMT external ear and nose normal, oropharynx normal Neck trachea midline, no thyromegaly Respiratory normal respiratory effort, lungs clear to auscultation Cardiovascular RRR, no murmur, no edema Gastrointestinal (Abdomen) normal bowel sounds, soft, nontender, no hepatosplenomegaly Musculoskeletal no cyanosis or clubbing, extremities motor strength 5/5 Skin no rashes, warm and dry Neurologic patellar DTR's 2+ bilat, sensation intact and PERRL, EOMI, accommodation nl, no face palsy, no dysarthria Psychiatric Orientation: alert and oriented x 3 Speech: + pressured speech Affect: + labile affect and + irritable affect Lymphatic no cervical or axillary lymphadenopathy Discharge Data Allergies Allergy/AdvReac Type Severity Reaction Status Date / Time No Known Allergies Allergy Unverified 11/23/18 23:11 Consultations 11/24/18 00:00 ED Decision to Admit Stat 11/24/18 03:27 Consult Gastroenterology Routine Procedures Performed Operation Date: 11/24/18 08:30 Actual Procedures p Esophagogastroduodenoscopy - Tal Ramon Ordered Studies 11/23/18 22:10 CT abd pelvis wo con Urgent 11/25/18 13:33 CT abd pelvis oral con only Urgent Hospital Course (1) Foreign body ingestion: patient recently transferred to [facility] from another senior living. upon arrival felt depressed. attempted self-harm/suicide by way of ingesting pieces of glass (according to him they were the size of sugar granules) from a shattered light bulb and also cut both arms and his abdominal wall with a plastic fork or spoon numerous times. he has attempted suicide in the past "a bunch of times." s/p EGD without signs of injury or retained foreign body. following EGD I spoke with on-call general surgery - they recommended we observe for any signs/symptoms of bowel perforation. clear liquid diet also recommended for [address] of his abd/pelvis with oral contrast because of abdominal complaints and this was negative for perforation or bowel injury. CT showed severe constipation. advanced diet to low fiber, tolerating well, can d/c back to [facility] (2) Contact with glass as cause of injury with undetermined intent of harm: s/p suicide attempt see discussion above in "foreign body ingestion" patient now continues to deny suicidal ideation Spoke with the provider field artillery cannoneer for [facility] and made them aware of suicidal behavior made them of aware of the need for close follow up and referral to psychiatry at [facility] immediately (3) Suicidal ideation: patient denies any further suicidality at this time. he will be followed by psychiatry at the senior living. he is only on clonidine and imipramine -- uncertain, given his bipolar, why he is not on other mood stabilizing agents (antipsychotic, depakote, etc). (4) Constipation: severe on x-rays and CT. imipramine likely contributing to this chronic problem. I recommended to him to speak with psych upon return to senior living to see if this med can be changed to something else. poor diet at senior living also contributing. s/p 5 doses of miralax gave fleets x 1 on 11/26 gave 2 additional doses of miralax on 11/26 significant passage of stool, completely emptied his colon on evening of 11/26 and morning of 11/27 at discharge would suggest miralax BID +/- senna and improved diet. (5) Bipolar disorder: as above (6) VSD (ventricular septal defect): exam and echo c/w such fortunately RV size/function is normal follow for now (7) Esophagitis: PPI x 1 month as recommended by GI Total Time Total Time Spent Total Time Spent (In Minutes): 31 minutes Total Time Includes: Examination of the Patient, Discharge Planning, Medication Reconciliation and Communication With Other Providers (spoke with provider at [facility] over the phone) Discharge Plan Discharge Items [facility] Disposition[facility] Reason For Visit: FOREIGN BODY INGESTION Discharge Diagnosis: Foreign body ingestion, glass shards Self mutilation, cutting Esophagitis Constipation Condition: Good Discharge Goals: Improve disease control and Improve function Activity: Resume your previous activity Non-emergency contact: Primary Care Provider and Psychiatrist Call non-emergency contact if: you have any medication questions, your symptoms worsen and your pain is not controlled Follow-up/Referrals: Charly WALDEN [Primary Care Provider] - Diet: Regular Addtl Provider Instructions: Medications: - PROTONIX: 40mg daily in the morning prior to breakfast, take for 30 days then stop - CARAFATE: 10mL four times a day for the next 7 days then stop Ingestion of glass shards EGD showed no perforation, just showed some esophagitis GI recommends using Protonix and Carafate as above CT abdomen/pelvis showed no evidence of bowel injury Constipation: resolved with aggressive bowel regimen of Miralax twice a day and enema some liquid stool now, likely due to the Miralax recommend improving diet, stay well hydrated can use Miralax or another laxative daily if help needed in moving bowels Mood disorder, self mutilation with glass, cutting denies suicidal ideation, no need for inpatient psychiatry placement recommend close follow up with psychiatry on discharge may need to consider additional medications or changing medications Imipramine can lead to constipation which he presented with Prescriptions: New sucralfate 100 mg/mL Suspension 10 ml PO QID 7 Days Qty: 280 RF: 0 pantoprazole 40 mg Tablet,Delayed Release (Dr/Ec) 40 mg PO DAILYBB 30 Days Qty: 30 RF: 0 Continued clonidine HCl 0.2 mg Tablet 0.2 mg PO BID RF: 0 imipramine HCl 50 mg Tablet 50 mg PO BID RF: 0 Stand-Alone Forms: [facility] Discharge Orders: Discharge Order (Routine); Ordered 11/27/18 Ordered By: Forrest Rodriguez Admission Data Admit Date/Time: 11/25/18 15:31 Attending Provider: Forrest Rodriguez Admit Provider: Mirta Rothman Primary Care Provider: Charly WALDEN Other Providers: Tal Ramon Service: Surgical Services Other Interventions: Discharge Summary Assessment (RN) Last Done: 11/27/18 11:26 DC Date/Time DO NOT enter until pt leaves facility: 11/27/18 12:30
== END 2018-11-27 12:30 | DRG 394 ==
LOC: ED 21:43 → 2W 21:43 → SUATTDRO 11-24 00:53 → 2W 11-24 02:56 → SUATTDRO 11-25 15:31
DX: R45.851 Suicidal ideations; K59.00 Constipation, unspecified; T18.9XXA Foreign body of alimentary tract, part unspecified, initial encounter; F90.9 Attention-deficit hyperactivity disorder, unspecified type; X78.0XXA Intentional self-harm by sharp glass, initial encounter; K20.9 Esophagitis, unspecified; F84.5 Asperger's syndrome; F31.9 Bipolar disorder, unspecified; Z79.899 Other long term (current) drug therapy; Q21.0 Ventricular septal defect; Z87.891 Personal history of nicotine dependence